=== PATIENT | male | born 1960 | race Caucasian/White ===

== ENCOUNTER 2020-10-12 17:08 | Emergency (ER) | payer OTHER ==
[~2020-10-12] VITALS: Ht 180.3 cm; Wt 82.6 kg
[2020-10-12] MEDS ORDERED: FLOMAX0.4 MG (17:32)
[2020-10-12] MEDS ORDERED: FLOMAX0.4 MG PO (18:07)
== END 2020-10-12 19:36 | disposition home or self-care (01) ==
LOC: ED 17:08
DX: R33.9 Retention of urine, unspecified (principal)
CPT/HCPCS: 51702; 81001; 99283-25

== ENCOUNTER → 2023-12-30 | Day surgery (SDC) | payer OTHER ==
[~2023-12-30] MED LIST: CALCIUM 600+D1 EAC5 PO; FLOMAX0.4 MG; FLOMAX0.4 MG PO; GARLIC100 MG PO; LIDOCAINE 2% VISCOUS 11 ML SYR ONE; METRONIDAZOLE60 GM TOP; SILODOSIN8 MG PO; VITAMIN B121000 MCG PO; ZINC50 M2 PO
--- NOTE | 2023-12-30 13:24 | NUR ---
LE 1315: PT IS DC'D BACK TO [facility] VIA WC, ACCOMPANIED BY TRANSPORT OFFICERS.
== END ==
LOC: OPS 11:51 → DS 11:51 → OPS 13:00 → DS 13:00
PROVIDERS: ATTEND Urology
PROC: 0TJB8ZZ Inspection of Bladder, Via Natural or Artificial Opening Endoscopic (ICD-10-PCS; principal; 2023-12-30 13:00)
DX: N40.1 Benign prostatic hyperplasia with lower urinary tract symptoms (principal); N13.8 Other obstructive and reflux uropathy; Z88.8 Allergy status to other drugs, medicaments and biological substances
CPT/HCPCS: 52224; C1747; J3490

== ENCOUNTER 2025-02-25 13:51 | Emergency (ER) | payer OTHER ==
[~2025-02-25] VITALS: Ht 180.3 cm; Wt 89.0 kg
[~2025-02-25 13:51] MED LIST changes: -LIDOCAINE 2% VISCOUS 11 ML SYR ONE
[2025-02-25] MEDS ORDERED: LIDOCAINE 2% VISCOUS 6 ML SYR ONE (13:55)
[2025-02-25 14:25] LABS: BLOOD/HGB, URINE TRACE-I (Negative); KETONE, URINE NEGATIVE (Negative); LEUK ESTERASE, URINE NEGATIVE (negative); NITRITE, URINE NEGATIVE (negative)
[2025-02-25] MEDS ORDERED: LIDOCAINE 2% VISCOUS 6 ML SYR TOP ONE (14:30)
[2025-02-25 14:32] LABS: EPITHELIAL CELLS, URINE SQUAMOUS 1+ /lpf (0-1+)
[2025-02-25 14:33] LABS: BACTERIA, URINE NONE SEEN /hpf (negative); CASTS, URINE NONE SEEN \\lpf; CRYSTALS, URINE NONE SEEN (0-1+); REFLEX CULTURE, URINE No (No)
[2025-02-25 16:00] VITALS: BP 115/77
== END 2025-02-25 16:00 | disposition home or self-care (01) ==
LOC: ED 13:51
PROVIDERS: Emergency Medicine
DX: N40.1 Benign prostatic hyperplasia with lower urinary tract symptoms (principal); R33.8 Other retention of urine; Z88.8 Allergy status to other drugs, medicaments and biological substances; Z79.899 Other long term (current) drug therapy
CPT/HCPCS: 51702; 81001; 99283; A4311